=== PATIENT | female | born 1990 | race Caucasian/White ===

== ENCOUNTER 2016-12-03 08:43 | Emergency (ER) | payer OTHER ==
[~2016-12-03] VITALS: Ht 142.2 cm; Wt 144.0 kg
[2016-12-03 08:46] VITALS: Ht 142.2 cm; Wt 144.0 kg
[2016-12-03 09:21] LABS: URINE BLOOD (Dip) POC 2+ (NEGATIVE)
[2016-12-03] MEDS ORDERED: ONDANSETRON 4 MG INJ IV STA (10:03)
[2016-12-03] MEDS ORDERED: KETOROLAC 30 MG INJ IV STA (10:03)
[2016-12-03 10:50] LABS: ADD SCAN DIFF NO
[2016-12-03 10:56] LABS: ADD UMIC YES; URINE BILIRUBIN (Dip) NEGATIVE (NEGATIVE); URINE BLOOD (Dip) 3+ (NEGATIVE); URINE COLOR LT. YELLOW (YELLOW); URINE GLUCOSE (Dip) NEGATIVE (NEGATIVE); URINE KETONES (Dip) NEGATIVE (NEGATIVE); URINE LEUKOCYTE ESTERASE (Dip) 1+ (NEGATIVE); URINE NITRITE (Dip) POSITIVE (NEGATIVE); URINE TOTAL PROTEIN (Dip) NEGATIVE (NEGATIVE); URINE UROBILINOGEN (Dip) 0.2 E.U./dL (0.1-1.0)
[2016-12-03 11:00] LABS: ABNORMAL IP MESSAGE 1; BASOPHIL # 0.1 10^3/ul (0.0-0.1); BASOPHILS % 0.6 % (0.0-2.0); EOSINOPHILS # 0.2 10^3/ul (0.0-0.5); EOSINOPHILS % 2.2 % (0.0-7.0); HEMATOCRIT 38.8 % (37.0-47.0); HEMOGLOBIN 12.4 g/dl (12.0-16.0); LYMPHOCYTES % 29.4 % (15.0-51.0); MEAN CORPUSCULAR HEMOGLOBIN 27.3 pg (29.0-33.0); MEAN CORPUSCULAR VOLUME 85.5 fl (82.0-101.0); MEAN PLATELET VOLUME 13.7 fl (7.4-10.4); MONOCYTE # 0.7 10^3/ul (0.3-0.9); MONOCYTES % 7.1 % (0.0-11.0); NEUTROPHIL # 6.1 10^3/ul (1.6-7.5); NEUTROPHILS % 59.9 % (39.0-77.0); PLATELET COUNT 96 10^3/UL (140-415); RED BLOOD COUNT 4.54 10^6/ul (4.20-5.40); RED CELL DISTRIBUTION WIDTH 14.2 % (11.5-14.5); WHITE BLOOD COUNT 10.2 10^3/ul (4.8-10.8)
--- NOTE | 2016-12-03 11:05 | RADRPT ---
PROCEDURE: Retroperitoneal US. CLINICAL INDICATION: Flank pain TECHNIQUE: Multiple sonographic images of the kidneys and retroperitoneum were obtained. The imag es were reviewed on a PACS workstation. COMPARISON: No prior studies are available for comparison. FINDINGS: The kidneys are normal in size, contour, cortical thickness and cortical echogenicity. The right kidney measures 9.5 cm. The left kidney measures 9.5 cm. No kidney stones are visualized. There is mild right-sided hydronephrosis. The urinary bladder is normal. RPTAT: AA IMPRESSION: Mild right-sided hydronephrosis. .Tamir Artis MD, MD Date Time Electronically viewed and signed by .Tamir Artis MD, on 12/03/2016 11:05 .S/
[2016-12-03 11:07] LABS: BACTERIA,URINE FEW
[2016-12-03 11:18] LABS: ALBUMIN 4.8 g/dl (3.3-4.9); ALBUMIN/GLOBULIN RATIO 1.6; BILIRUBIN,INDIRECT 0.3 mg/dl (0-1.1); BILIRUBIN,TOTAL 0.3 mg/dl (0.2-1.3); CALCIUM 9.8 mg/dl (8.4-10.2); CREATININE 0.84 mg/dl (0.44-1.00); POTASSIUM 4.3 mmol/L (3.5-5.1); TOTAL PROTEIN 7.8 g/dl (6.1-8.1)
[2016-12-03] MEDS ORDERED: DICLOFENAC SODIUM 37.5 MG/ML VIAL IV STA (11:25)
[2016-12-03] MEDS ORDERED: CEFTRIAXONE 1 GM/50 ML (PMX) 50 ML IVPB ONE (11:30)
[2016-12-03] MEDS ORDERED: NITR-58 PO (11:46)
[2016-12-03] MEDS ORDERED: DIPHENHYDRAMINE 50 MG INJ IV ONE (12:00)
[2016-12-03] MEDS ORDERED: ONDANSETRON (ODT) 4 MG TAB ODT STA (12:27)
[2016-12-03] MEDS ORDERED: ONDA4TAB14 PO (12:29)
[2016-12-03 12:32] VITALS: BP 136/76; PULSE 89; RESP 20; TEMP 98.1
--- NOTE | 2016-12-03 16:01 | ERD ---
ER Documentation Chief Complaint Date/Time DATE: 12/03/16 TIME: 15:50 Chief Complaint GENERALIZED ABDOMINAL PAIN MOSTLY ON BOTH SIDES HPI 26-year-old female brought in by rescue ambulance is complaining of abdominal pain since yesterday. Patient stated the pain is constant and shooting. It is located in the left upper and right upper quadrants. Patient stated that she went to [facility] ER last night, was told that she has a obstructing kidney stone, and she needs to come to this ER to receive IV antibiotics. She had received CT scan yesterday. She was given prescription [place], but she did not fill it. Patient reports dysuria as well. Denies fever or chills. Reports nausea, but denies vomiting. Denies diarrhea. ROS All systems reviewed and are negative except as per history of present illness. Medications Home Meds Active Scripts Ondansetron (Ondansetron Odt) 4 Mg Tab.rapdis, 4 MG PO Q6H Y for NAUSEA AND/OR VOMITING, #10 TAB Prov:CARLINE WASHINGTON. BIG DATA ADMIN 12/03/16 Nitrofurantoin Monohyd Macrocr* (Macrobid*) 100 Mg Capsr, 100 MG PO BID for 7 Days, CAP Prov:CARLINE WASHINGTON. BIG DATA ADMIN 12/03/16 Allergies Allergies: Coded Allergies: morphine (Verified Allergy, Unknown, VOMITING , ABD PAIN, 12/03/16) PMhx/Soc History of Surgery: Yes (CHOLECYSTECTOMY ) Anesthesia Reaction: No Hx Neurological Disorder: No Hx Respiratory Disorders: No Hx Cardiac Disorders: No Hx Psychiatric Problems: No Hx Miscellaneous Medical Probl: Yes (ADHD , KIDNEY STONES ) Hx Alcohol Use: No Hx Substance Use: No Hx Tobacco Use: No Smoking Status: Never smoker Physical Exam Vitals Vital Signs Date Time Temp Pulse Resp B/P Pulse Ox O2 Delivery O2 Flow Rate FiO2 12/03/16 12:32 98.1 89 20 136/76 100 Room Air 12/03/16 08:46 98.3 125 24 139/70 100 Physical Exam General: Well-developed, morbidly obese, conscious and coherent, in no distress Skin: Warm and dry without rash, good texture and turgor Head: Normocephalic without evidence of trauma Eyes: Sclera and conjunctivae normal; pupils equal, round, and reactive to light; extraocular movements are intact Neck: Supple without meningismus or adenopathy. Carotids are equal. Trachea midline. No bruits or JVD Chest: Normal AP diameter. Good expansion without retractions. Nontender. Lungs are clear to auscultate bilaterally with good tidal volume Heart: Regular rate and rhythm. No murmur, rub, or gallops heard Abdomen: Soft, obese abdomen. Diffusely nontender without masses, guarding, or rebound. Bowel sounds are active. No hepatosplenomegaly Back: Without spinal or CVA tenderness Pelvis: Nontender to palpation and stable to compression Extremities: Full range of motion. Good strength bilaterally. No clubbing, cyanosis, or edema. Peripheral pulses are intact. Sensation intact Neuro: Alert and oriented 4, GCS 15. Cranial nerves grossly intact. Motor and sensory exams nonfocal. Moves all extremities. Speech clear. Gait normal Result Diagram: 12/03/16 1018 12/03/16 1018 Results 24 hrs Laboratory Tests Test 12/03/16 09:15 12/03/16 09:25 12/03/16 10:18 Urine Color LT. YELLOW Urine Clarity SLIGHTLY CLOUDY Urine pH 5.5 Urine Specific [place] 1.025 Urine Ketones NEGATIVE Urine Nitrite POSITIVE Urine Bilirubin NEGATIVE Urine Urobilinogen 0.2 E.U./dL Urine Leukocyte Esterase 1+ Urine Microscopic RBC 10-25/HPF Urine Microscopic WBC 5-10/HPF Urine Epithelial Cells OCCASIONAL Urine Bacteria FEW Urine Hemoglobin 3+ Urine Glucose NEGATIVE% Urine Total Protein NEGATIVE Bedside Urine pH (LAB) 5.0 Bedside Urine Protein (LAB) 1+ Bedside Urine Glucose (UA) Negative Bedside Urine Ketones (LAB) Negative Bedside Urine Blood 2+ Bedside Urine Nitrite (LAB) Positive Bedside Urine Leukocyte Esterase (L 2+ White Blood Count 10.210^3/ul Red Blood Count 4.5410^6/ul Hemoglobin 12.4g/dl Hematocrit 38.8% Mean Corpuscular Volume 85.5fl Mean Corpuscular Hemoglobin 27.3pg Mean Corpuscular Hemoglobin Concent 32.0g/dl Red Cell Distribution Width 14.2% Platelet Count 9610^3/UL Mean Platelet Volume 13.7fl Neutrophils % 59.9% Lymphocytes % 29.4% Monocytes % 7.1% Eosinophils % 2.2% Basophils % 0.6% Nucleated Red Blood Cells % 0.0/100WBC Neutrophils # 6.110^3/ul Lymphocytes # 3.010^3/ul Monocytes # 0.710^3/ul Eosinophils # 0.210^3/ul Basophils # 0.110^3/ul Nucleated Red Blood Cells # 0.010^3/ul Sodium Level 143mmol/L Potassium Level 4.3mmol/L Chloride Level 109mmol/L Carbon Dioxide Level 24mmol/L Anion Gap 14 Blood Urea Nitrogen 17mg/dl Creatinine 0.84mg/dl Glucose Level 97mg/dl Calcium Level 9.8mg/dl Total Bilirubin 0.3mg/dl Direct Bilirubin 0.00mg/dl Indirect Bilirubin 0.3mg/dl Aspartate Amino Transf (AST/SGOT) 49IU/L Alanine Aminotransferase (ALT/SGPT) 75IU/L Alkaline Phosphatase 73IU/L Total Protein 7.8g/dl Albumin 4.8g/dl Globulin 3.00g/dl Albumin/Globulin Ratio 1.60 Lipase 323U/L Current Medications Medications (Trade) Dose Ordered Sig/Zaynab Route PRN Reason Start Time Stop Time Status Last Admin Dose Admin Ketorolac Tromethamine (Toradol) 30 mg ONCE STAT IV 12/03/16 10:03 12/03/16 10:06 DC 12/03/16 10:17 Ondansetron HCl 4 mg 4 mg ONCE STAT IV 12/03/16 10:03 12/03/16 10:06 DC 12/03/16 10:17 Ceftriaxone Sodium (Rocephin) 50 ml @ 100 mls/hr ONCE ONCE IVPB 12/03/16 11:30 12/03/16 11:59 DC 12/03/16 11:30 Diclofenac Sodium (Dyloject) 37.5 mg ONCE STAT IV 12/03/16 11:25 12/03/16 11:27 DC 12/03/16 11:30 Diphenhydramine HCl (Benadryl) 50 mg ONCE ONCE IV 12/03/16 12:00 12/03/16 12:01 DC 12/03/16 11:48 Ondansetron HCl (Zofran Odt) 4 mg ONCE STAT ODT 12/03/16 12:27 12/03/16 12:29 DC PROCEDURE: Retroperitoneal US. CLINICAL INDICATION: Flank pain TECHNIQUE: Multiple sonographic images of the kidneys and retroperitoneum were obtained. The images were reviewed on a PACS workstation. COMPARISON: No prior studies are available for comparison. FINDINGS: The kidneys are normal in size, contour, cortical thickness and cortical echogenicity. The right kidney measures 9.5 cm. The left kidney measures 9.5 cm. No kidney stones are visualized. There is mild right-sided hydronephrosis. The urinary bladder is normal. RPTAT: AA IMPRESSION: Mild right-sided hydronephrosis. .Tamir Artis MD, MD Date Time Electronically viewed and signed by .Tamir Artis MD, on 12/03/2016 11: 05 .S/ CC: CARLINE WASHINGTON BIG DATA ADMIN Procedures/MDM Morbidly obese 26-year-old female presented ED with abdominal pain 2 days. Toradol and Zofran given to the patient in the ED for pain. Patient stated that Toradol did not help her pain, and that she is allergic to morphine, but she is requesting Dilaudid. CBC, CMP, and lipase are unremarkable. UA is positive for urinary tract infection. I doubt pyelonephritis. Renal ultrasound showed a mild hydronephrosis on the right, no urolithiasis seen on ultrasound. Since patient is BUN/creatinine are within normal range, I do not feel that her hydronephrosis needs emergent intervention. Patient is given Rocephin 1 g IV piggyback in the ED, and Dylojet IV for pain. Patient reports improvement pain after otalgia. Patient appears well, stable for discharge and outpatient management. Medical decision making shared with patient and family. Education provided to patient and family. Patient and family expressed understanding of the plan. Medications on discharge: Macrobid, Zofran. Follow-up: Primary care provider in 2-3 days or return to ED if worse. Departure Diagnosis: Primary Impression: UTI (urinary tract infection) Condition: Good Patient Instructions: Understanding Urinary Tract Infections (UTIs) Referrals: COMM[facility]ITY CLIN[facility] YOU HAVE RECEIVED A MEDICAL SCREENING EXAM AND THE RESULTS INDICATE THAT YOU DO NOT HAVE A CONDITION THAT REQUIRES URGENT TREATMENT IN THE EMERGENCY DEPARTMENT. FURTHER EVALUATION AND TREATMENT OF YOUR CONDITION CAN WAIT UNTIL YOU ARE SEEN IN YOUR DOCTORS OFFICE WITHIN THE NEXT 1-2 DAYS. IT IS YOUR RESPONSIBILITY TO MAKE AN APPOINTMENT FOR FOLOW-UP CARE. IF YOU HAVE A PRIMARY DOCTOR --you should call your primary doctor and schedule an appointment IF YOU DO NOT HAVE A PRIMARY DOCTOR YOU CAN CALL OUR PHYSICIAN REFERRAL HOTLINE AT IF YOU CAN NOT AFFORD TO SEE A PHYSICIAN YOU CAN CHOSE FROM THE FOLLOWING [facility] CL[facility] [address] [facility] [address] [employer] [facility] [address] [facility] [address] [facility] [address] [facility]. [facility]. [address] Additional Instructions: Call your primary care doctor TOMORROW for an appointment during the next 2-3 days.See the doctor sooner or return here if your condition worsens before your appointment time. CARLINE WASHINGTON NP Dec 03, 2016 16:01
== END 2016-12-03 12:34 | disposition home or self-care (01) ==
LOC: FTE 08:43
DX: N39.0 Urinary tract infection, site not specified (principal); R11.0 Nausea
CPT/HCPCS: 76775; 80053; 81001; 83690; 85025; J0696; J1200; J1885; J2405; Z7610; 36415; 81003; 96365; 96375